=== PATIENT | female | born 1940 | race Caucasian/White ===

== ENCOUNTER → 2017-12-03 | Outpatient (CLI) | payer MEDICARE, BC ==
--- NOTE | 2017-12-03 13:18 | BD ---
EXAMINATION TYPE: MG DEXA axial skeleton. DATE OF EXAM: 12/03/2017 COMPARISON: 07/15/2015 CLINICAL HISTORY: Postmenopausal female. Osteoporosis screening. Height: 63.5 IN Weight: 192 LBS FRAX RISK QUESTIONS: Alcohol (3 or more units per day): NO Family History (Parent hip fracture): NO Glucocorticoids (More than 3mos): NO (Ex: prednisone, prednisolone, methylprednisolone, dexamethasone, and hydrocortisone). History of Fracture in Adulthood: NO Secondary Osteoporosis: 1. Type 1 Diabetes: NO 2. Hyperthyroidism: NO 3. Menopause before 45: NO 4. Malnutrition: NO 5. Chronic liver disease: NO Rheumatoid Arthritis: YES Current Tobacco Use: NO RISK FACTORS HISTORY OF: Active: YES Diet low in dairy products/other sources of calcium: YES Postmenopausal woman: AGE 54 Lost more than 2 inches in height since high school: YES 11/02 " MEDICATIONS: Additional Medications: VIT D, LOVASTATIN, IMIPRAMINE, MELATONIN, LISINOPRIL,ASPIRIN 81 MG, B12, FISH OIL, CLONAZEPAM, METOPROLOL EXAM MEASUREMENTS: Bone mineral densitometry was performed using the [employer] System. Bone mineral density as measured about the Lumbar spine is: ----- L1-L4(G/cm2): 1.346 T Score Values are as follows: ----- L2: 1.7 ----- L3: 1.6 ----- L4: 1.5 ----- L1-L4: 1.4 Bone mineral density has: Decreased -0.6% since study of: 07/15/2015 Bone mineral density about the R hip (g/cm2): 1.087 Bone mineral density about the L hip (g/cm2): 1.113 T Score values are as follows: -----R Neck: 0.4 -----L Neck: 0.5 -----R Total: 0.9 -----L Total: 1.1 Bone mineral density has: Increased 0.7% since study of: 07/15/2015 IMPRESSION: Normal (Values between +1 and -1 indicate normal bone mass). Consider repeating this study in 5 year s or sooner if there is some new clinical indication. NOTE: T-SCORE=SD OF THE YOUNG ADULT MEAN.
--- NOTE | 2017-12-06 10:11 | MM ---
Reason for exam: screening (asymptomatic). Last mammogram was performed 2 years and 5 months ago. History: Patient is postmenopausal. Physical Findings: A clinical breast exam by your physician is recommended on an annual basis and results should be correlated with mammographic findings. MG Screening Mammo w CAD Bilateral CC and MLO view(s) were taken. Prior study comparison: July 15, 2015, bilateral MG screening mammo w CAD. June 08, 2014, bilateral MG screening mammo w CAD. There are scattered fibroglandular densities. Finding: There are typically benign vascular, round calcifications in both breasts. There is no discrete abnormality. Left axillary pacemaker. ASSESSMENT: Benign, BI-RAD 2 RECOMMENDATION: Routine screening mammogram of both breasts in 1 year.
== END | disposition home or self-care (01) ==
LOC: RADMAMWWP 11:40
PROVIDERS: ATTEND Family Medicine
DX: Z12.31 Encounter for screening mammogram for malignant neoplasm of breast (principal); M89.9 Disorder of bone, unspecified; N95.1 Menopausal and female climacteric states
CPT/HCPCS: 77067; 77080

== ENCOUNTER → 2018-05-16 | Outpatient (CLI) | payer MEDICARE, BC ==
--- NOTE | 2018-05-16 10:28 | CT ---
EXAMINATION TYPE: CT abdomen pelvis w con DATE OF EXAM: 05/16/2018 HISTORY: Hematuria and generalized discomfort CT DLP: 1388.9mGycm Automated Exposure Control for Dose Reduction was Utilized. CONTRAST: CT scan of the abdomen and pelvis is performed with IV Contrast, patient injected with 100 mL of Isov ue 300. COMPARISON: None. FINDINGS: LUNG BASES: Probable lingular atelectasis and minimal subsegmental bibasilar atelectasis are noted. P artial visualization of ventricular leads and mild cardiomegaly are also seen. LIVER/GB: Benign-appearing dystrophic calcification is seen within the dome of the left hepatic lobe. Wedge-shaped area of hypoattenuation is seen near the fissure for the falciform ligament on series 3 image 17, most commonly related to focal fatty infiltration. Remaining visualized portions of the li cheo are grossly unremarkable. Gallbladder is contracted. PANCREAS: No ductal dilatation. Pancreatic parenchyma enhances homogeneously. SPLEEN: No significant abnormality is seen. No splenomegaly. ADRENALS: There is slight nodularity of the right adrenal gland ben measuring 1.2 cm. Left adrenal g land is somewhat diminutive but otherwise unremarkable. KIDNEYS: In the bilateral lower poles on delayed images there are 4 mm hypoattenuated renal lesions t hat are cortically-based sent to small to accurately characterize. No other renal lesion is seen. No evidence of hydronephrosis. Remainder of the kidneys enhance and excrete symmetrically.. BOWEL: Scattered colonic diverticula are present without pericolonic fat stranding. Ventral hernia re pair is noted. High density layering within the cecum and terminal ileum likely related to ingested s ubstances. No regular quadrant fat stranding changes are seen. Small bowel anastomotic site is noted within the mid low pelvis. No dilated large or small bowel. LYMPH NODES: No greater than 1cm abdominal or pelvic lymph nodes are appreciated. OSSEOUS STRUCTURES: Intact with multilevel degenerative disc disease.. OTHER: Extensive calcific atheromatous changes are seen of the abdominal aorta and its branches. No e vidence of aneurysmal dilatation.. IMPRESSION: 1. No significant acute finding is seen to account for patient's clinical symptoms. Postoperative baltazar nges of the small bowel are seen as well as high density within the nondilated terminal ileum, likely related to ingested substance and postoperative changes of prior ventral hernia repair. No recurrenc e of hernia or bowel obstruction. 2. Indeterminant 1.2 cm right adrenal gland lesion is currently of low suspicion and may represent no dular area of adrenal gland hyperplasia or true lesion. This could be further assessed with enhanced MRI or alternatively short-term follow-up could be performed in 6-12 months. 3. No evidence of hydronephrosis or suspicious renal mass. 4 mm cortical renal lesions are too small to accurately characterize but most commonly represent cysts. 4. Extensive atherosclerosis of the abdominal aorta and its branches without aneurysmal dilatation.
== END | disposition home or self-care (01) ==
LOC: RADCTMAIN 09:12
PROVIDERS: ATTEND Family Medicine
DX: I70.0 Atherosclerosis of aorta (principal); N28.1 Cyst of kidney, acquired; Z98.890 Other specified postprocedural states
CPT/HCPCS: 74177; Q9967

== ENCOUNTER → 2018-10-14 | Outpatient (CLI) | payer MEDICARE, BC ==
--- NOTE | 2018-10-14 14:28 | XR ---
AP pelvis HISTORY: Pelvic pain Single frontal view of the pelvis. Calcifications are present at the ischial tuberosities. There are vascular calcifications within the pelvis, iliac stent noted on the left. Multiple metallic coils are postoperative within the abdomen. No fracture or dislocation. Bone mineralization is reduced. Alignment and joint spaces are maintained . Degenerative disc changes are noted incidentally in the lower lumbar spine. Patient is rotated. IMPRESSION: There may be calcific tendinitis at the origin of the hamstring musculature. MRI of the p christa may be of benefit. Additional findings above.
--- NOTE | 2018-10-14 14:40 | XR ---
Lumbar spine HISTORY: Pain 3 views of the lumbar spine submitted and correlated prior lumbar spine 09/21/2012 Degenerative disc changes are again noted, there is a slight spinal curvature. Anterolisthesis grade 1 present L4-5. Loss of disc height present at the intervertebral levels with associated vacuum pheno edvin. Sclerosis present in the posterior elements. There is multilevel spondylosis. Bone mineralizat ion is decreased. Lumbar vertebral body height is maintained. Dense atherosclerotic calcifications pr esent in the aortoiliac distribution. IMPRESSION: Degenerative disc disease and facet arthropathy. There has been progression compared to p revious exam.
== END | disposition home or self-care (01) ==
LOC: RADXRMAIN 13:35
PROVIDERS: ATTEND Family Medicine
DX: M51.36 Other intervertebral disc degeneration, lumbar region (principal); M46.96 Unspecified inflammatory spondylopathy, lumbar region
CPT/HCPCS: 72100; 72170

== ENCOUNTER → 2018-11-21 | Outpatient (CLI) | payer MEDICARE, BC ==
--- NOTE | 2018-11-21 16:06 | CT ---
EXAMINATION TYPE: CT abdomen wo/w con DATE OF EXAM: 11/21/2018 HISTORY: Right adrenal lesion. CT DLP: 1960.5mGycm Automated Exposure Control for Dose Reduction was Utilized. CONTRAST: CT scan of the abdomen is performed with oral and without and with IV Contrast, patient injected with 100ml mL of Isovue 300. Adrenal gland protocol. COMPARISON: CT abdomen and pelvis May 16, 2018. FINDINGS: LUNG BASES: There is partial visualization of sternal wires and mediastinal clips. There is mild card iomegaly redemonstrated. Cardiac pacemaker wires are again partially imaged. LIVER/GB: Focal calcification left hepatic lobe is redemonstrated. PANCREAS: No significant abnormality is seen. SPLEEN: No significant abnormality is seen. ADRENALS: Slight nodular thickening centrally left adrenal gland measuring 1.7 x 0.8 cm measures just under [address] with enhancement to 79 Hounsfield units and washout to 14 Hounsfield unit s. Slight thickening centrally right adrenal gland measures 12 x 9 mm series 6 image 17 with Hounsfie ld units averaging [address], immediate postcontrast enhancement to 78 and washout to 23 Houn sfield units. Greater than 50% washout is consistent with bilateral lipid rich benign adenomas. KIDNEYS: No significant abnormality is seen. BOWEL: Oral contrast does not reach colonic level. No suspicious bowel dilatation is seen. LYMPH NODES: No greater than 1cm abdominal lymph nodes are appreciated. OSSEOUS STRUCTURES: There is multilevel disc space narrowing and vacuum disc phenomenon in the lumbar spine most prominent L3-L4 through L5-S1 levels. OTHER: Coils from prior ventral wall hernia repair surgery are redemonstrated. No suspicious recurren t hernia is seen. There is persistent severe calcified plaque of aorta extending into branch vessels. IMPRESSION: Small benign lipid rich adenomas are confirmed bilaterally.
== END | disposition home or self-care (01) ==
LOC: RADCTMAIN 14:07
PROVIDERS: ATTEND Urology
DX: D35.01 Benign neoplasm of right adrenal gland (principal)
CPT/HCPCS: 82565; 84520; 74170; 36415; Q9967

== ENCOUNTER → 2019-09-01 | Outpatient (CLI) | payer MEDICARE, BC ==
[2019-09-01 13:19] LABS: African American GFR (CKD) >90 (>60 ml/min/1.73 sqM); Blood Urea Nitrogen 15 mg/dL (7-17)
--- NOTE | 2019-09-01 17:16 | CT ---
EXAMINATION TYPE: CT brain wo/w con DATE OF EXAM: 09/01/2019 COMPARISON: None INDICATION: Memory Loss DLP: 2108.4 mGycm, Automated exposure control for dose reduction was used. CONTRAST: None CT of the brain is performed utilizing 3 mm thick sections through the posterior fossa and 3 mm thick sections through the remaining calvarium. Study is performed within 24 hours of arrival to the hosp ital. No abnormal hyperdensity is present to suggest an acute intracranial hemorrhage. No mass lesion is evident. No acute infarcts are evident. Mild periventricular white matter hypodensity is present, likely on th e basis of chronic white matter ischemic changes. Ventricles and sulci are mildly prominent for the patient age. Paranasal sinuses and mastoid air cells within the [id number] are clear. IMPRESSIONS: 1. Atrophy with chronic appearing white matter ischemic changes.
== END ==
LOC: RADCTMAIN 12:40
PROVIDERS: ATTEND Family Medicine
DX: I67.82 Cerebral ischemia (principal); G31.9 Degenerative disease of nervous system, unspecified
CPT/HCPCS: 82565; 84520; 70470; 36415; Q9967

== ENCOUNTER → 2019-11-28 | Outpatient (CLI) | payer MEDICARE, BC ==
--- NOTE | 2019-11-28 13:54 | CT ---
EXAMINATION TYPE: CT angio chest DATE OF EXAM: 11/28/2019 COMPARISON: None HISTORY: Shortness of breath. CT DLP: 457.9 mGycm CONTRAST: CT chest with contrast and 3D reconstruction with MIP imaging is performed with IV Contrast, patient injected with 80 mL of Isovue 370. Contrast-enhanced CT of the chest was performed through the course of the pulmonary arteries with ese g and mediastinal window settings submitted. 3D reconstruction with MIP imaging was also performed. PULMONARY ARTERIES: The pulmonary arteries and their major tributaries are patent. I do not see lauren dence for sizable filling defect to suggest pulmonary embolic process. LUNGS: The lungs are clear and free of infiltrate. No evidence for atelectasis. No pulmonary nodule or mass is detected. No pleural effusion. MEDIASTINUM: Thoracic aorta is of normal caliber,however, evaluation is limited given timing of the contrast bolus. If there is concern for thoracic aortic pathology consider ELOISA. Correlate clinicall y . The heart is not enlarged. No evidence for mediastinal mass. No mediastinal lymph nodes greater than 1cm. HILAR STRUCTURES: No evidence for mass. No hilar lymph nodes greater than 1 cm. UPPER ABDOMEN: No significant abnormality is seen. IMPRESSION: 1. No evidence for Pulmonary embolism at this time.
--- NOTE | 2019-11-28 14:50 | US ---
EXAMINATION TYPE: US venous doppler duplex LE BI DATE OF EXAM: 11/28/2019 2:36 PM COMPARISON: NONE CLINICAL HISTORY: R79.1 ABN COAGULATION PROFILE. Elevated D-Dimer SIDE PERFORMED: Bilateral TECHNIQUE: The lower extremity deep venous system is examined utilizing real time linear array sonog mario with graded compression, doppler sonography and color-flow sonography. VESSELS IMAGED: External Iliac Vein (EIV) Common Femoral Vein Deep Femoral Vein Greater Saphenous Vein * Femoral Vein Popliteal Vein Small Saphenous Vein * Proximal Calf Veins (* superficial vessels) Right Leg: Negative for DVT Left Leg: Negative for DVT Results called to Dr. Reyes at time of exam IMPRESSION: No evidence for DVT at this time.
== END | disposition home or self-care (01) ==
LOC: RADCTMAIN 13:12
PROVIDERS: ATTEND Family Medicine
DX: R79.1 Abnormal coagulation profile (principal)
CPT/HCPCS: 93970; 71275; Q9967

== ENCOUNTER 2020-05-22 14:59 | Emergency (ER) | payer MEDICARE, BC ==
[2020-05-22] MEDS ORDERED: LIDOCAINE VISCOUS 2% 15 ML CUP MUCOUS MEM ONE (15:23)
--- NOTE | 2020-05-22 15:51 | US ---
EXAMINATION TYPE: US venous doppler duplex LE LT DATE OF EXAM: 05/22/2020 3:46 PM COMPARISON: NONE CLINICAL HISTORY: LLE swelling r/o DVT . edema left leg for 2 days, patient on Plavix SIDE PERFORMED: Bilateral lower extremity ultrasound November 28, 2019 TECHNIQUE: The lower extremity deep venous system is examined utilizing real time linear array sonog mario with graded compression, doppler sonography and color-flow sonography. VESSELS IMAGED: External Iliac Vein (EIV) Common Femoral Vein Deep Femoral Vein Greater Saphenous Vein * Femoral Vein Popliteal Vein Small Saphenous Vein * Proximal Calf Veins (* superficial vessels) Left Leg: No evidence of DVT Grayscale, color doppler, spectral doppler imaging performed of the deep veins of the left lower extr emity. There is normal flow, compressibility, vascular waveforms. IMPRESSION: No ultrasound evidence for acute DVT in the left lower extremity.
--- NOTE | 2020-05-22 17:03 | ED ---
General Adult HPI - General Chief complaint: Extremity Problem,Nontraumatic Stated complaint: Blood clot Time Seen by Provider: 05/22/20 15:06 Source: patient, RN notes reviewed, old records reviewed Mode of arrival: wheelchair Limitations: no limitations - History of Present Illness Initial comments: 80-year-old female patient with a chief complaint left lower extremity swelling for the last 2 days. Denies any chest pain or shortness of breath. Denies any other complaints. Systemic: Pt denies fatigue, fever/chills, rash. Pt denies weakness, night sweats, weight loss. Neuro: Pt denies headache, visual disturbances, syncope or pre-syncope. HEENT: Pt denies ocular discharge or irritation, otalgia, rhinorrhea, pharyngitis or notable lymphadenopathy. Cardiopulmonary: Pt denies chest pain, SOB, heart palpitations, dyspnea on exertion. Abdominal/GI: Pt denies abdominal pain, n/v/d. : Pt denies dysuria, burning w/ urination, frequency/urgency. Denies new onset urinary or bowel incontinence. MSK: Pt denies myalgia, loss of strength or function in extremities. Neuro: Pt denies new onset weakness, paresthesias. - Related Data Home Medications Medication Instructions Recorded Confirmed Aspirin 81 mg PO BID 09/23/15 05/22/20 Ipratropium-Albuterol Nebulize 1 applic INHALATION RT-QID PRN 09/23/15 05/22/20 [Duoneb 0.5 mg-3 mg/3 ml Soln] Lovastatin [Mevacor] 20 mg PO HS 05/22/20 05/22/20 Metoprolol Tartrate [Lopressor] 75 mg PO BID 05/22/20 05/22/20 amLODIPine [Norvasc] 10 mg PO DAILY 05/22/20 05/22/20 clonazePAM [KlonoPIN] 0.5 mg PO HS 05/22/20 05/22/20 lisinopriL [Lisinopril] 40 mg PO DAILY 05/22/20 05/22/20 Previous Rx's Medication Instructions Recorded Clopidogrel [Plavix] 75 mg PO DAILY #90 tab 06/18/16 Azithromycin [Zithromax Z-pack] 0 mg PO DIRECTED #6 tab 05/22/20 predniSONE 50 mg PO DAILY 4 Days #4 tab 05/22/20 Allergies Allergy/AdvReac Type Severity Reaction Status Date / Time No Known Allergies Allergy Verified 05/22/20 16:52 Review of Systems ROS Statement: Those systems with pertinent positive or pertinent negative responses have been documented in the HPI. ROS Other: All systems not noted in ROS Statement are negative. Past Medical History Past Medical History: Coronary Artery Disease (CAD), COPD, Hyperlipidemia, Hypertension, Osteoarthritis (OA), Skin Disorder Additional Past Medical History / Comment(s): BLADDER WEAKNESS, ARTHRITIS-LOWER BACK, HANDS & KNEES,RASH NOW LT SIDE NECK- COMES & GOES. History of Any Multi-Drug Resistant Organisms: None Reported Past Surgical History: Appendectomy, Bowel Resection, Coronary Bypass/CABG, Heart Catheterization, Hysterectomy, Pacemaker Additional Past Surgical History / Comment(s): NICKOLAS CAROTID ENDARTERECTOMY, EXC. LEFT CATARACT WITH IMPLANT, CABG X4-05/2014, aortogram Past Anesthesia/Blood Transfusion Reactions: No Reported Reaction Type of Cardiac Device: Permanent Pacemaker Device Placement Date:: 09/30/15 [employer] Past Psychological History: No Psychological Hx Reported Smoking Status: Never smoker Past Alcohol Use History: Occasional Past Drug Use History: None Reported - Past Family History Father Family Medical History: Hypertension, Myocardial Infarction (ME) Additional Family Medical History / Comment(s): @ AGE 101 Mother Family Medical History: No Reported History Additional Family Medical History / Comment(s): FROM STROKE General Exam Limitations: no limitations Course Vital Signs 05/22/20 05/22/20 05/22/20 15:01 17:30 18:20 Temperature 98.3 F Pulse Rate 53 L 59 L 56 L Respiratory 16 20 18 Rate Blood Pressure 173/73 187/80 185/85 O2 Sat by Pulse 91 L 90 L 98 Oximetry Medical Decision Making - Medical Decision Making 80-year-old female patient with a chief complaint left lower extremity swelling for the last 2 days. Denies any chest pain or shortness of breath. Denies any other complaints. Patient vital signs are stable, afebrile. Exam did display some swelling to the left lower extremity nontender no erythema or cellulitic changes. Laboratory investigations displayed elevated d-dimer. Negative troponin. Venous Doppler negative for DVT. CTA negative for PE there is some pneumonia right middle lobe left upper lobe. Patient to test for Covid and treated for pneumonia with Rocephin and azithromycin. Patient states that she is not coughing anymore than normal. Patient will be prescribed breathing treatments. Patient will follow-up with her primary care provider tomorrow and return to ER if condition worsens. Patient had some bradycardia and will be advised here jail manager. Case discussed in depth with Dr. Mcclure. - Lab Data Result diagrams: 05/22/20 17:36 05/22/20 17:36 Lab Results 05/22/20 05/22/20 05/22/20 Range/Units 17:36 17:36 17:36 WBC 10.6 (3.8-10.6) k/uL RBC 4.83 (3.80-5.40) m/uL Hgb 16.3 H (11.4-16.0) gm/dL Hct 50.3 H (34.0-46.0) % MCV 104.1 H (80.0-100.0) fL MCH 33.8 (25.0-35.0) pg MCHC 32.4 (31.0-37.0) g/dL RDW 12.9 (11.5-15.5) % Plt Count 261 (150-450) k/uL Neutrophils % 88 % Lymphocytes % 9 % Monocytes % 2 % Eosinophils % 2 % Basophils % 0 % Neutrophils # 9.2 H (1.3-7.7) k/uL Lymphocytes # 0.9 L (1.0-4.8) k/uL Monocytes # 0.2 (0-1.0) k/uL Eosinophils # 0.2 (0-0.7) k/uL Basophils # 0.0 (0-0.2) k/uL Macrocytosis Slight D-Dimer 1.52 H (<0.60) mg/L FEU Sodium 136 L (137-145) mmol/L Potassium 5.0 (3.5-5.1) mmol/L Chloride 97 L (98-107) mmol/L Carbon Dioxide 24 (22-30) mmol/L Anion Gap 15 mmol/L BUN 19 H (7-17) mg/dL Creatinine 0.69 (0.52-1.04) mg/dL Est GFR (CKD-EPI)AfAm >90 (>60 ml/min/1.73 sqM) Est GFR (CKD-EPI)NonAf 83 (>60 ml/min/1.73 sqM) Glucose 144 H (74-99) mg/dL Calcium 10.3 H (8.4-10.2) mg/dL Total Bilirubin 0.9 (0.2-1.3) mg/dL AST 43 H (14-36) U/L ALT 26 (4-34) U/L Alkaline Phosphatase 73 (38-126) U/L Troponin I (0.000-0.034) ng/mL Total Protein 8.2 (6.3-8.2) g/dL Albumin 5.1 H (3.5-5.0) g/dL 05/22/20 Range/Units 17:36 WBC (3.8-10.6) k/uL RBC (3.80-5.40) m/uL Hgb (11.4-16.0) gm/dL Hct (34.0-46.0) % MCV (80.0-100.0) fL MCH (25.0-35.0) pg MCHC (31.0-37.0) g/dL RDW (11.5-15.5) % Plt Count (150-450) k/uL Neutrophils % % Lymphocytes % % Monocytes % % Eosinophils % % Basophils % % Neutrophils # (1.3-7.7) k/uL Lymphocytes # (1.0-4.8) k/uL Monocytes # (0-1.0) k/uL Eosinophils # (0-0.7) k/uL Basophils # (0-0.2) k/uL Macrocytosis D-Dimer (<0.60) mg/L FEU Sodium (137-145) mmol/L Potassium (3.5-5.1) mmol/L Chloride (98-107) mmol/L Carbon Dioxide (22-30) mmol/L Anion Gap mmol/L BUN (7-17) mg/dL Creatinine (0.52-1.04) mg/dL Est GFR (CKD-EPI)AfAm (>60 ml/min/1.73 sqM) Est GFR (CKD-EPI)NonAf (>60 ml/min/1.73 sqM) Glucose (74-99) mg/dL Calcium (8.4-10.2) mg/dL Total Bilirubin (0.2-1.3) mg/dL AST (14-36) U/L ALT (4-34) U/L Alkaline Phosphatase (38-126) U/L Troponin I <0.012 (0.000-0.034) ng/mL Total Protein (6.3-8.2) g/dL Albumin (3.5-5.0) g/dL - EKG Data -: EKG Interpreted by Me (and Dr. Mcclure ) EKG Comments: 1) ventricular rate 58, painful to 24, QRS 108, QT/QTc 478/469. Sinus bradycardia with first-degree AV block, possible left atrial enlargement dramatically right bundle branch block. Nonspecific changes. No concern for acute ischemia. 2) ventricular rate 58 when necessary for 162 QRS 108, QT/QTC 500/490. Sinus bradycardia with occasional PVC with right bundle-branch block. Nonspecific changes. No concern for acute ischemia at this time. Disposition Clinical Impression: Bradycardia, Pneumonia, COPD (chronic obstructive pulmonary disease) Disposition: HOME SELF-CARE Condition: Stable Additional Instructions: Use albuterol as needed may use 2 puffs every 4-6 hours. Follow-up with primary care provider and jail manager tomorrow. Take antibiotics as directed. Return to ER if condition worsens in any way. Prescriptions: predniSONE 50 mg PO DAILY #5 tab Azithromycin [Zithromax Z-pack] 0 mg PO DIRECTED #6 tab Is patient prescribed a controlled substance at d/c from ED?: No Referrals: Beatriz Reyes MD [Primary Care Provider] - 1-2 days
[2020-05-22 17:46] LABS: Basophils % (A) 0 %; Eosinophils # (A) 0.2 k/uL (0-0.7); Eosinophils % (A) 2 %; HCT 50.3 % (34.0-46.0); HGB 16.3 gm/dL (11.4-16.0); Lymphocytes # (A) 0.9 k/uL (1.0-4.8); Lymphocytes % (A) 9 %; MCH 33.8 pg (25.0-35.0); MCHC 32.4 g/dL (31.0-37.0); MCV 104.1 fL (80.0-100.0); Macrocytosis Slight; Mean Platelet Volume 7.6; Monocytes # (A) 0.2 k/uL (0-1.0); Monocytes % (A) 2 %; Neutrophils # (A) 9.2 k/uL (1.3-7.7); Neutrophils % (A) 88 %; Platelet Count 261 k/uL (150-450); RBC 4.83 m/uL (3.80-5.40); RDW 12.9 % (11.5-15.5); WBC 10.6 k/uL (3.8-10.6)
[2020-05-22 17:58] LABS: ALT 26 U/L (4-34); AST 43 U/L (14-36); African American GFR (CKD) >90 (>60 ml/min/1.73 sqM); Albumin 5.1 g/dL (3.5-5.0); Alkaline Phosphatase 73 U/L (38-126); Anion Gap 15 mmol/L; Blood Urea Nitrogen 19 mg/dL (7-17); Calcium 10.3 mg/dL (8.4-10.2); Carbon Dioxide 24 mmol/L (22-30); Chloride 97 mmol/L (98-107); Glucose 144 mg/dL (74-99); Non-African American GFR(CKD) 83 (>60 ml/min/1.73 sqM); Sodium 136 mmol/L (137-145); Total Bilirubin 0.9 mg/dL (0.2-1.3); Total Protein 8.2 g/dL (6.3-8.2)
[2020-05-22] MEDS ORDERED: SODIUM CHLORIDE 0.9% 1,000 ML IV ONE (18:15)
--- NOTE | 2020-05-22 19:01 | CT ---
EXAMINATION TYPE: CT chest angio for PE DATE OF EXAM: 05/22/2020 COMPARISON: 11/28/2019 HISTORY: SOB, elevated d-dimer CT DLP: 484.8 mGycm Automated exposure control for dose reduction was used. CONTRAST: Performed with IV Contrast, patient injected with 80cc mL of Isovue 370. Multiple axial sections were obtained from the thoracic inlet to the diaphragm with IV contrast. Ther e are 3-D post processed images. FINDINGS: The lungs are clear of consolidation. There is no pleural effusion. There is no mediastinal adenopath y there are no hilar masses. Thoracic aorta is atheromatous. There is no thoracic aortic aneurysm or dissection. There is normal contrast opacification of the pulmonary arteries. There are no filling de fects. There is some coarse reticular density in the right middle lobe and lingula left upper lobe. T here is no evidence of thoracic compression fracture. There is spondylotic changes in the thoracic sp ine. IMPRESSION: Atherosclerotic vascular disease. No evidence of pulmonary embolism. There is some mild right middle lobe and lingula left upper lobe interstitial infiltrate and atelectasis that appears new compared to old exam.
[2020-05-22] MEDS ORDERED: cefTRIAXone IN SWFI 1,000 MG/10 ML SYRINGE IVP STA (19:42)
[2020-05-22] MEDS ORDERED: AZITHROMYCIN 500 MG TAB PO STA (19:42)
[2020-05-22] MEDS ORDERED: ALBUTEROL NEBULIZED 2.5 MG/3 ML INHALATION STA (19:48)
[2020-05-22] MEDS ORDERED: predniSONE 50 MG TAB PO STA (19:52)
[2020-05-22 20:09] VITALS: BP 190/88; PULSE 54; RESP 20; TEMP 98
== END 2020-05-22 20:32 | disposition home or self-care (01) ==
LOC: EC 14:59
DX: J44.0 Chronic obstructive pulmonary disease with (acute) lower respiratory infection (principal); J18.9 Pneumonia, unspecified organism; R00.1 Bradycardia, unspecified; Z20.828 Contact with and (suspected) exposure to other viral communicable diseases; I25.10 Atherosclerotic heart disease of native coronary artery without angina pectoris; J44.9 Chronic obstructive pulmonary disease, unspecified; I10 Essential (primary) hypertension; E78.5 Hyperlipidemia, unspecified; Z79.51 Long term (current) use of inhaled steroids; Z79.890 Hormone replacement therapy; Z79.82 Long term (current) use of aspirin; Z95.0 Presence of cardiac pacemaker; Z95.1 Presence of aortocoronary bypass graft
CPT/HCPCS: 99284; 96374; 96361 ×2; 36415; 93005; 85379; 80053; 84484; 85025; 93971; 71275; U0003; J0696; J7512; Q9967

== ENCOUNTER 2021-01-07 10:17 | Emergency (ER) | payer MEDICARE, BC ==
[2021-01-07 10:56] LABS: Basophils # (A) 0.1 k/uL (0-0.2); Basophils % (A) 1 %; Eosinophils # (A) 0.1 k/uL (0-0.7); Eosinophils % (A) 1 %; HCT 48.6 % (34.0-46.0); Lymphocytes # (A) 1.2 k/uL (1.0-4.8); Lymphocytes % (A) 13 %; MCH 33.2 pg (25.0-35.0); MCHC 32.9 g/dL (31.0-37.0); MCV 100.9 fL (80.0-100.0); Mean Platelet Volume 6.9; Monocytes # (A) 0.6 k/uL (0-1.0); Monocytes % (A) 6 %; Neutrophils # (A) 7.3 k/uL (1.3-7.7); Neutrophils % (A) 79 %; Platelet Count 339 k/uL (150-450); RBC 4.82 m/uL (3.80-5.40); RDW 12.5 % (11.5-15.5); WBC 9.2 k/uL (3.8-10.6)
[2021-01-07 11:01] LABS: Appearance,Urine Cloudy (Clear); Bilirubin,Urine 1+ (Negative); Blood,Urine Negative (Negative); Color,Urine Dark Yellow; Glucose,Urine (UA) Negative (Negative); Hyaline Casts,Urine 1 /lpf (0-2); Ketones,Urine Negative (Negative); Leukocyte Esterase,Urine Large (Negative); Mucus,Urine Occasional /hpf; Nitrite,Urine Negative (Negative); PH, Urine 5.5 (5.0-8.0); Protein,Urine 1+ (Negative); Specific Gravity,Urine 1.026 (1.001-1.035); Squamous Epithelial Cell,Urine 11 /hpf (0-4); WBC,Urine 8 /hpf (0-5)
[2021-01-07 11:05] LABS: Albumin 4.7 g/dL (3.5-5.0); Calcium 9.8 mg/dL (8.4-10.2); Magnesium 1.5 mg/dL (1.6-2.3); Potassium 4.6 mmol/L (3.5-5.1); Total Bilirubin 0.9 mg/dL (0.2-1.3); Total Protein 7.6 g/dL (6.3-8.2)
[2021-01-07 11:07] LABS: Partial Thromboplastin Time 22.4 sec (22.0-30.0); Prothrombin Time 10.8 sec (9.0-12.0)
--- NOTE | 2021-01-07 11:15 | ED ---
General Adult HPI - General Chief complaint: Neuro Symptoms/Deficit Stated complaint: possible dementia Time Seen by Provider: 01/07/21 10:24 Source: patient, family Mode of arrival: ambulatory - History of Present Illness Initial comments: Patient is a 80-year-old female with history of COPD, hypertension, heart disease, presents emergency Department with her daughter over concerns of possible dementia. Patient currently lives on her own, daughter lives 1.5 hours away, she is the patient's closest relative. Daughter states that she has concerns over the past few months of patient's intermittent memory loss, forgetting appointments. Patient currently does not believe she is having memory issues. She currently lives on her own, drives to her appointments, takes her medications as prescribed. Patient states she did have a recent fall about 3 days ago at a store, she tripped on something on the floor, she did not hit her head. There is no loss of consciousness. Patient is on plavix as she has a pacemaker. She has no complaints of pain from this fall. She denies any pains at this time, no shortness of breath, she's been eating and drinking as normal. No headaches, no blurry vision, no numbness and tingling to her extremities. She has no complaints at this time. Upon arrival to the ER, her vitals are stable. - Related Data Home Medications Medication Instructions Recorded Confirmed Aspirin 81 mg PO BID 09/23/15 01/07/21 Ipratropium-Albuterol Nebulize 3 ml INHALATION RT-QID PRN 09/23/15 01/07/21 [Duoneb 0.5 mg-3 mg/3 ml Soln] Lovastatin [Mevacor] 20 mg PO HS 05/22/20 01/07/21 Metoprolol Tartrate [Lopressor] 50 mg PO BID 05/22/20 01/07/21 amLODIPine [Norvasc] 5 mg PO BID 05/22/20 01/07/21 clonazePAM [KlonoPIN] 0.5 mg PO HS 05/22/20 01/07/21 lisinopriL 40 mg PO DAILY 05/22/20 01/07/21 Cyanocobalamin [Vitamin B-12] 500 mcg PO DAILY 01/07/21 01/07/21 Fish Oil/Dha/Epa [Fish Oil 1,200 1 cap PO BID 01/07/21 01/07/21 mg Fish Oil] Imipramine HCl [Tofranil] 50 mg PO BID 01/07/21 01/07/21 Melatonin 30 mg PO HS 01/07/21 01/07/21 Allergies Allergy/AdvReac Type Severity Reaction Status Date / Time No Known Allergies Allergy Verified 01/07/21 11:30 Review of Systems ROS Statement: Those systems with pertinent positive or pertinent negative responses have been documented in the HPI. ROS Other: All systems not noted in ROS Statement are negative. Past Medical History Past Medical History: Coronary Artery Disease (CAD), COPD, Hyperlipidemia, Hypertension, Osteoarthritis (OA), Skin Disorder Additional Past Medical History / Comment(s): BLADDER WEAKNESS, ARTHRITIS-LOWER BACK, HANDS & KNEES History of Any Multi-Drug Resistant Organisms: None Reported Past Surgical History: Appendectomy, Bowel Resection, Coronary Bypass/CABG, Heart Catheterization, Hysterectomy, Pacemaker Additional Past Surgical History / Comment(s): NICKOLAS CAROTID ENDARTERECTOMY, EXC. LEFT CATARACT WITH IMPLANT, CABG X4-05/2014, aortogram Past Anesthesia/Blood Transfusion Reactions: No Reported Reaction Type of Cardiac Device: Permanent Pacemaker Device Placement Date:: 09/30/15 [employer] Past Psychological History: No Psychological Hx Reported Smoking Status: Never smoker Past Alcohol Use History: Occasional Past Drug Use History: None Reported - Past Family History Father Family Medical History: Hypertension, Myocardial Infarction ([place]) Additional Family Medical History / Comment(s): @ AGE 101 Mother Family Medical History: No Reported History Additional Family Medical History / Comment(s): FROM STROKE General Exam - General Exam Comments Initial Comments: GENERAL: Patient is well-developed and well-nourished. Patient is nontoxic and in no acute distress. HEAD: Atraumatic, normocephalic. EYES: Pupils equal round and reactive to light, extraocular movements intact, sclera anicteric, conjunctiva are normal. Eyelids were unremarkable. ENT: TMs normal, nares patent, oropharynx clear without exudates. Moist mucous membranes. NECK: Normal range of motion, supple without lymphadenopathy or JVD. LUNGS: Unlabored respirations. Breath sounds clear to auscultation bilaterally and equal. No wheezes rales or rhonchi. HEART: Regular rate and rhythm without murmurs, rubs or gallops. ABDOMEN: Soft, nontender, normoactive bowel sounds. No guarding, no rebound. No masses appreciated. : Deferred MUSCULOSKELETAL: Normal extremities with adequate strength and normal range of motion, no pitting or edema. No clubbing or cyanosis. NEUROLOGICAL: Patient is alert and oriented x 3. Motor and sensory are also intact. Cranial nerves II through XII grossly intact. Symmetrical smile. Normal speech, normal gait. PSYCH: Normal mood, normal affect. SKIN: Warm, Dry, normal turgor, no rashes or lesions noted. Course Vital Signs 01/07/21 01/07/21 01/07/21 10:20 10:54 12:03 Temperature 98.3 F Pulse Rate 77 51 L 51 L Respiratory 20 18 18 Rate Blood Pressure 185/81 179/73 209/87 O2 Sat by Pulse 92 L 94 L 94 L Oximetry EKG Findings - EKG Comments: EKG Findings:: Atrial paced rhythm with prolonged AV conduction, nonspecific ST abnormalities, no signs of acute ischemia, there is a lot of artifact on this EKG. Ventricular rate 53, MN interval 212, QT 482. Medical Decision Making - Medical Decision Making Patient is a 80-year-old female here with her daughter with concerns of possible dementia. Her vital signs are stable here, patient has no specific complaints. Her exam is unremarkable, no acute neuro deficits. EKG shows no acute process. Lab work shows normal white count, normal hemoglobin, kidney function is stable, TSH is normal. Urine shows no evidence of infection at this time. Chest x-ray shows chronic changes without acute process as well as CT of the brain. Patient's vital signs remained stable here, some hypertension, over patient is anxious here in the ER and just wants to go home. She did take her blood pressure medications this morning. Discussed these findings with the patient and patient's daughter. Patient is stable for discharge at this time. If daughter continues to have concerns the patient living on their own and I recommend following up with the family doctor in regards to placement issues. Patient's daughter is in agreement with this plan of care. Return parameters were discussed with the patient and her daughter and they both verbalized understanding. Case discussed with Dr. Pacheco. - Lab Data Result diagrams: 01/07/21 10:43 01/07/21 10:43 Lab Results 01/07/21 01/07/21 01/07/21 Range/Units 10:43 10:43 10:43 WBC 9.2 (3.8-10.6) k/uL RBC 4.82 (3.80-5.40) m/uL Hgb 16.0 (11.4-16.0) gm/dL Hct 48.6 H (34.0-46.0) % MCV 100.9 H (80.0-100.0) fL MCH 33.2 (25.0-35.0) pg MCHC 32.9 (31.0-37.0) g/dL RDW 12.5 (11.5-15.5) % Plt Count 339 (150-450) k/uL MPV 6.9 Neutrophils % 79 % Lymphocytes % 13 % Monocytes % 6 % Eosinophils % 1 % Basophils % 1 % Neutrophils # 7.3 (1.3-7.7) k/uL Lymphocytes # 1.2 (1.0-4.8) k/uL Monocytes # 0.6 (0-1.0) k/uL Eosinophils # 0.1 (0-0.7) k/uL Basophils # 0.1 (0-0.2) k/uL PT 10.8 (9.0-12.0) sec INR 1.0 (<1.2) APTT 22.4 (22.0-30.0) sec Sodium 138 (137-145) mmol/L Potassium 4.6 (3.5-5.1) mmol/L Chloride 98 (98-107) mmol/L Carbon Dioxide 28 (22-30) mmol/L Anion Gap 12 mmol/L BUN 15 (7-17) mg/dL Creatinine 0.87 (0.52-1.04) mg/dL Est GFR (CKD-EPI)AfAm 73 (>60 ml/min/1.73 sqM) Est GFR (CKD-EPI)NonAf 64 (>60 ml/min/1.73 sqM) Glucose 135 H (74-99) mg/dL Calcium 9.8 (8.4-10.2) mg/dL Magnesium 1.5 L (1.6-2.3) mg/dL Total Bilirubin 0.9 (0.2-1.3) mg/dL AST 35 (14-36) U/L ALT 30 (4-34) U/L Alkaline Phosphatase 65 (38-126) U/L Total Protein 7.6 (6.3-8.2) g/dL Albumin 4.7 (3.5-5.0) g/dL TSH 4.370 (0.465-4.680) mIU/L Urine Color Urine Appearance (Clear) Urine pH (5.0-8.0) Ur Specific [place] (1.001-1.035) Urine Protein (Negative) Urine Glucose (UA) (Negative) Urine Ketones (Negative) Urine Blood (Negative) Urine Nitrite (Negative) Urine Bilirubin (Negative) Urine Urobilinogen (<2.0) mg/dL Ur Leukocyte Esterase (Negative) Urine WBC (0-5) /hpf Ur Squamous Epith Cells (0-4) /hpf Hyaline Casts (0-2) /lpf Urine Mucus (None) /hpf 01/07/21 Range/Units 10:43 WBC (3.8-10.6) k/uL RBC (3.80-5.40) m/uL Hgb (11.4-16.0) gm/dL Hct (34.0-46.0) % MCV (80.0-100.0) fL MCH (25.0-35.0) pg MCHC (31.0-37.0) g/dL RDW (11.5-15.5) % Plt Count (150-450) k/uL MPV Neutrophils % % Lymphocytes % % Monocytes % % Eosinophils % % Basophils % % Neutrophils # (1.3-7.7) k/uL Lymphocytes # (1.0-4.8) k/uL Monocytes # (0-1.0) k/uL Eosinophils # (0-0.7) k/uL Basophils # (0-0.2) k/uL PT (9.0-12.0) sec INR (<1.2) APTT (22.0-30.0) sec Sodium (137-145) mmol/L Potassium (3.5-5.1) mmol/L Chloride (98-107) mmol/L Carbon Dioxide (22-30) mmol/L Anion Gap mmol/L BUN (7-17) mg/dL Creatinine (0.52-1.04) mg/dL Est GFR (CKD-EPI)AfAm (>60 ml/min/1.73 sqM) Est GFR (CKD-EPI)NonAf (>60 ml/min/1.73 sqM) Glucose (74-99) mg/dL Calcium (8.4-10.2) mg/dL Magnesium (1.6-2.3) mg/dL Total Bilirubin (0.2-1.3) mg/dL AST (14-36) U/L ALT (4-34) U/L Alkaline Phosphatase (38-126) U/L Total Protein (6.3-8.2) g/dL Albumin (3.5-5.0) g/dL TSH (0.465-4.680) mIU/L Urine Color Dark Yellow Urine Appearance Cloudy H (Clear) Urine pH 5.5 (5.0-8.0) Ur Specific [place] 1.026 (1.001-1.035) Urine Protein 1+ H (Negative) Urine Glucose (UA) Negative (Negative) Urine Ketones Negative (Negative) Urine Blood Negative (Negative) Urine Nitrite Negative (Negative) Urine Bilirubin 1+ H (Negative) Urine Urobilinogen 3.0 (<2.0) mg/dL Ur Leukocyte Esterase Large H (Negative) Urine WBC 8 H (0-5) /hpf Ur Squamous Epith Cells 11 H (0-4) /hpf Hyaline Casts 1 (0-2) /lpf Urine Mucus Occasional H (None) /hpf Disposition Clinical Impression: Memory change, Hypertension Disposition: HOME SELF-CARE Condition: Stable Instructions (If sedation given, give patient instructions): Hypertension (ED) Additional Instructions: Please return to the Emergency Department if symptoms worsen or any other concerns. Please monitor blood pressure. Please follow-up with your regular family doctor. Is patient prescribed a controlled substance at d/c from ED?: No Referrals: Beatriz Reyes MD [Primary Care Provider] - 1-2 days
--- NOTE | 2021-01-07 11:42 | XR ---
EXAMINATION TYPE: XR chest 2V DATE OF EXAM: 01/07/2021 COMPARISON: CTA chest November 28, 2019. Prior chest x-ray October 01, 2015 HISTORY: Shortness of breath. TECHNIQUE: Frontal and lateral views of the chest are obtained. FINDINGS: There is chronic parenchymal changes bilaterally without suspicious focal air space opacit y, pleural effusion, or pneumothorax seen. The cardiac silhouette size is upper limits of normal wit h atherosclerotic aorta. Overlying sternal wires and mediastinal clips. The osseous structures are d emineralized. IMPRESSION: Chronic changes without acute pulmonary process.
--- NOTE | 2021-01-07 12:01 | CT ---
EXAMINATION TYPE: CT brain wo con DATE OF EXAM: 01/07/2021 COMPARISON: CT brain 09/01/2019 HISTORY: Fall, memory issues CT DLP: 1114.4 mGycm Automated exposure control for dose reduction was used. Helical imaging through the brain. FINDINGS: There is no hemorrhage or hydrocephalus. Cerebral vascular calcifications are present. Periventricula r white matter shows patchy low attenuation. Cortical atrophy is likely age-related. IMPRESSION: STABLE EXAM. AGE-RELATED CHANGES OF ATROPHY AND CHRONIC SMALL VESSEL ISCHEMIA
[2021-01-07 12:37] VITALS: BP 215/87; PULSE 53; RESP 20
[2021-01-07] MEDS ORDERED: cloNIDine HCL 0.2 MG TAB PO STA (12:37)
[2021-01-07 12:56] VITALS: TEMP 98.2
== END 2021-01-07 12:56 | disposition home or self-care (01) ==
LOC: EC 10:17
DX: R41.3 Other amnesia (principal); I10 Essential (primary) hypertension; E78.5 Hyperlipidemia, unspecified; I25.10 Atherosclerotic heart disease of native coronary artery without angina pectoris; J44.9 Chronic obstructive pulmonary disease, unspecified; Z79.02 Long term (current) use of antithrombotics/antiplatelets; Z79.82 Long term (current) use of aspirin
CPT/HCPCS: 36415; 70450; 71046; 80053; 81001; 83735; 84443; 85025; 85610; 85730; 93005; 99284

== ENCOUNTER 2021-02-14 22:59 | Emergency (ER) | payer MEDICARE, BC ==
[2021-02-14 23:12] VITALS: RESP 16; TEMP 98.3
--- NOTE | 2021-02-14 23:13 | ED ---
Fall HPI - General Stated Complaint: Fall Time Seen by Provider: 02/14/21 23:11 - History of Present Illness Initial Comments: This patient is a 80-year-old woman who presents to be evaluated for a fall. The patient states that she had been standing and then was unsure if she lost her balance but she fell striking her head. She currently denies injury other than a laceration. Patient denies head or neck pain. No chest, abdomen, back or extremity pain. Patient did not note symptoms prior to the fall. No chest pain, dyspnea, palpitations. She does not recall when her last tetanus shot was. MD Complaint: fall -: minutes(s) Fall From: standing When Fall Occurred: 1 hour STAFF PHYSICAL THERAPIST Fall Witnessed: no Place Fall Occurred: home Loss of Consciousness: unsure Prolonged Down Time?: no Symptoms Prior to Fall: none Location: head Severity scale (1-10): 0 - Related Data Home Medications Medication Instructions Recorded Confirmed Aspirin 81 mg PO BID 09/23/15 02/14/21 Ipratropium-Albuterol Nebulize 3 ml INHALATION RT-QID PRN 09/23/15 02/14/21 [Duoneb 0.5 mg-3 mg/3 ml Soln] Lovastatin [Mevacor] 20 mg PO HS 05/22/20 02/14/21 Metoprolol Tartrate [Lopressor] 50 mg PO BID 05/22/20 02/14/21 amLODIPine [Norvasc] 5 mg PO BID 05/22/20 02/14/21 clonazePAM [KlonoPIN] 0.5 mg PO HS 05/22/20 02/14/21 lisinopriL 40 mg PO DAILY 05/22/20 02/14/21 Cyanocobalamin [Vitamin B-12] 500 mcg PO DAILY 01/07/21 02/14/21 Fish Oil/Dha/Epa [Fish Oil 1,200 1 cap PO BID 01/07/21 02/14/21 mg Fish Oil] Melatonin 30 mg PO HS 01/07/21 02/14/21 Furosemide [Lasix] 40 mg PO BID@0700,1400 02/14/21 02/14/21 Magnesium Oxide 400 mg PO DAILY 02/14/21 02/14/21 Memantine [Namenda] 10 mg PO BID 02/14/21 02/14/21 Potassium Chloride ER [K-Dur 20] 20 meq PO DAILY 02/14/21 02/14/21 Allergies Allergy/AdvReac Type Severity Reaction Status Date / Time No Known Allergies Allergy Verified 01/07/21 11:30 Review of Systems ROS Statement: Those systems with pertinent positive or pertinent negative responses have been documented in the HPI. ROS Other: All systems not noted in ROS Statement are negative. Constitutional: Denies: fever, chills ENT: Denies: throat pain Respiratory: Denies: cough, dyspnea Cardiovascular: Denies: chest pain, palpitations, edema Gastrointestinal: Denies: abdominal pain, nausea, vomiting Genitourinary: Denies: dysuria, hematuria Musculoskeletal: Denies: back pain Skin: Denies: rash Neurological: Denies: headache, weakness, numbness, confusion Past Medical History Past Medical History: Coronary Artery Disease (CAD), COPD, Hyperlipidemia, Hype rtension, Osteoarthritis (OA), Skin Disorder Additional Past Medical History / Comment(s): BLADDER WEAKNESS, ARTHRITIS-LOWER BACK, HANDS & KNEES History of Any Multi-Drug Resistant Organisms: None Reported Past Surgical History: Appendectomy, Bowel Resection, Coronary Bypass/CABG, Heart Catheterization, Hysterectomy, Pacemaker Additional Past Surgical History / Comment(s): NICKOLAS CAROTID ENDARTERECTOMY, EXC. LEFT CATARACT WITH IMPLANT, CABG X4-05/2014, aortogram Past Anesthesia/Blood Transfusion Reactions: No Reported Reaction Type of Cardiac Device: Permanent Pacemaker Device Placement Date:: 09/30/15 [employer] Past Psychological History: No Psychological Hx Reported Smoking Status: Never smoker Past Alcohol Use History: Occasional Past Drug Use History: None Reported - Past Family History Father Family Medical History: Hypertension, Myocardial Infarction ([place]) Additional Family Medical History / Comment(s): @ AGE 101 Mother Family Medical History: No Reported History Additional Family Medical History / Comment(s): FROM STROKE General Exam General appearance: alert, in no apparent distress Head exam: Present: normocephalic Eye exam: Present: normal appearance, PERRL, EOMI. Absent: scleral icterus, conjunctival injection ENT exam: Present: normal oropharynx Neck exam: Present: normal inspection, full ROM Respiratory exam: Present: normal lung sounds bilaterally. Absent: respiratory distress, wheezes, rales, rhonchi, stridor Cardiovascular Exam: Present: regular rate, normal rhythm, normal heart sounds. Absent: systolic murmur, diastolic murmur, rubs, gallop GI/Abdominal exam: Present: soft. Absent: distended, tenderness, guarding, rebound, rigid, mass Extremities exam: Present: normal inspection, normal capillary refill. Absent: pedal edema, calf tenderness Back exam: Present: normal inspection. Absent: CVA tenderness (R), CVA tenderness (L), vertebral tenderness Neurological exam: Present: alert, oriented X3, CN II-XII intact. Absent: motor sensory deficit Skin exam: Present: warm, dry, normal color, other. Absent: intact (Right parietal scalp laceration, 7 cm. Right fifth digit laceration, 3 cm in length), rash Course Vital Signs 02/14/21 23:00 Temperature 98.3 F Pulse Rate 50 L Respiratory 16 Rate Blood Pressure 114/62 O2 Sat by Pulse 92 L Oximetry Procedures - Laceration Laceration #1 Consent Obtained: verbal consent Indication: laceration Site: scalp Size (cm): 7 Description: linear Depth: simple, single layer Anesthetic Used: lidocaine 1% Anesthesia Technique: local infiltration Type of Sutures: nylon Size of Sutures: 5-0 Number of Sutures: 10 Technique: running Patient Tolerated Procedure: well Laceration #2 Consent Obtained: verbal consent Indication: laceration Site: hand Description: linear Depth: simple, single layer Anesthetic Used: lidocaine 1% Anesthesia Technique: local infiltration Type of Sutures: nylon Size of Sutures: 5-0 Number of Sutures: 4 Technique: simple, interrupted Medical Decision Making - Lab Data Result diagrams: 02/14/21 23:39 02/14/21 23:39 Lab Results 02/14/21 02/14/21 Range/Units 23:39 23:39 WBC 7.4 (3.8-10.6) k/uL RBC 4.36 (3.80-5.40) m/uL Hgb 13.9 (11.4-16.0) gm/dL Hct 43.5 (34.0-46.0) % MCV 99.8 (80.0-100.0) fL MCH 31.9 (25.0-35.0) pg MCHC 31.9 (31.0-37.0) g/dL RDW 12.7 (11.5-15.5) % Plt Count 248 (150-450) k/uL MPV 7.3 Neutrophils % 60 % Lymphocytes % 27 % Monocytes % 5 % Eosinophils % 5 % Basophils % 1 % Neutrophils # 4.4 (1.3-7.7) k/uL Lymphocytes # 2.0 (1.0-4.8) k/uL Monocytes # 0.4 (0-1.0) k/uL Eosinophils # 0.4 (0-0.7) k/uL Basophils # 0.1 (0-0.2) k/uL Sodium 133 L (137-145) mmol/L Potassium 4.6 (3.5-5.1) mmol/L Chloride 95 L (98-107) mmol/L Carbon Dioxide 25 (22-30) mmol/L Anion Gap 13 mmol/L BUN 14 (7-17) mg/dL Creatinine 0.88 (0.52-1.04) mg/dL Est GFR (CKD-EPI)AfAm 73 (>60 ml/min/1.73 sqM) Est GFR (CKD-EPI)NonAf 63 (>60 ml/min/1.73 sqM) Glucose 94 (74-99) mg/dL Calcium 9.3 (8.4-10.2) mg/dL Total Bilirubin 0.6 (0.2-1.3) mg/dL AST 38 H (14-36) U/L ALT 24 (4-34) U/L Alkaline Phosphatase 53 (38-126) U/L Total Protein 6.8 (6.3-8.2) g/dL Albumin 4.0 (3.5-5.0) g/dL - EKG Data -: EKG Interpreted by Mi EKG shows normal: axis (normal), intervals (Consistent with paced rhythm), QRS complexes (Consistent with paced rhythm), ST-T waves (Consistent with paced rhythm) Rate: bradycardia (rate 51 bpm) Interpretation: other (There is dual AV paced rhythm, rate 51 bpm) Disposition Clinical Impression: Fall, Laceration of scalp, Finger laceration Disposition: HOME SELF-CARE Condition: Good Instructions (If sedation given, give patient instructions): Laceration (ED), Fall Prevention for Older Adults (ED) Is patient prescribed a controlled substance at d/c from ED?: No Referrals: Beatriz Reyes MD [Primary Care Provider] - 1-2 days
[2021-02-14] MEDS ORDERED: DIPH,PERTUS(ACELL)TETVAC-LF 0.5 ML VIAL IM ONE (23:37)
[2021-02-14 23:54] LABS: Basophils # (A) 0.1 k/uL (0-0.2); Basophils % (A) 1 %; Eosinophils # (A) 0.4 k/uL (0-0.7); Eosinophils % (A) 5 %; HCT 43.5 % (34.0-46.0); HGB 13.9 gm/dL (11.4-16.0); Lymphocytes % (A) 27 %; MCH 31.9 pg (25.0-35.0); MCHC 31.9 g/dL (31.0-37.0); MCV 99.8 fL (80.0-100.0); Mean Platelet Volume 7.3; Monocytes # (A) 0.4 k/uL (0-1.0); Monocytes % (A) 5 %; Neutrophils # (A) 4.4 k/uL (1.3-7.7); Neutrophils % (A) 60 %; Platelet Count 248 k/uL (150-450); RBC 4.36 m/uL (3.80-5.40); RDW 12.7 % (11.5-15.5); WBC 7.4 k/uL (3.8-10.6)
--- NOTE | 2021-02-15 00:17 | CT ---
EXAMINATION TYPE: CT brain siennaine wo con DATE OF EXAM: 02/14/2021 COMPARISON: CT brain 01/07/2021 HISTORY: 1516.1 Headache. Neck pain fall. CT DLP: fall mGycm Automated exposure control for dose reduction was used. There is cerebral cortical atrophy. There is no mass effect nor midline shift. There is no sign of in tracranial hemorrhage. Calvarium is intact. Skull base is intact. Cervical vertebra have fairly normal alignment. There is degenerative disc space narrowing at C5-6 an d C6-7 with spurring of the endplates. There is mild multilevel hypertrophic cervical facet arthropat hy. I see no focal bone destruction. There is no compression fracture. IMPRESSION: Cerebral atrophy. No acute intracranial abnormality. Right parietal scalp hematoma noted with soft ti ssue air bubbles consistent with laceration. Spondylotic changes in the lower cervical spine. No fracture. Brain unchanged compared to old exam.
[2021-02-15 00:18] LABS: Calcium 9.3 mg/dL (8.4-10.2); Total Bilirubin 0.6 mg/dL (0.2-1.3); Total Protein 6.8 g/dL (6.3-8.2)
[2021-02-15 00:23] LABS: Potassium 4.6 mmol/L (3.5-5.1)
[2021-02-15] MEDS ORDERED: LIDOCAINE 1% INJ 10MG/ML (20 ML MDV) SQ ONE (00:51)
[2021-02-15 02:04] VITALS: BP 112/72; PULSE 65
== END 2021-02-15 02:04 | disposition home or self-care (01) ==
LOC: EC 22:59
DX: S01.01XA Laceration without foreign body of scalp, initial encounter (principal); S61.216A Laceration without foreign body of right little finger without damage to nail, initial encounter; E78.5 Hyperlipidemia, unspecified; I10 Essential (primary) hypertension; I25.10 Atherosclerotic heart disease of native coronary artery without angina pectoris; J44.9 Chronic obstructive pulmonary disease, unspecified; M19.90 Unspecified osteoarthritis, unspecified site; W18.30XA Fall on same level, unspecified, initial encounter; Z95.1 Presence of aortocoronary bypass graft; Z95.0 Presence of cardiac pacemaker; Z23 Encounter for immunization
CPT/HCPCS: 90471 ×2; 12004 ×2; 96372 ×2; 99284 ×2; 36415; 93005; 80053; 85025; 72125; 70450; 90715; J2001

== ENCOUNTER 2022-06-09 09:08 | Emergency (ER) | payer MEDICARE, BC ==
[2022-06-09 09:17] VITALS: RESP 18; TEMP 97.8
--- NOTE | 2022-06-09 09:52 | ED ---
Extremity Problem HPI - General Chief complaint: Extremity Problem,Nontraumatic Stated complaint: poss blood clot Time Seen by Provider: 06/09/22 09:09 Source: patient, EMS, RN notes reviewed Mode of arrival: EMS Limitations: no limitations - History of Present Illness Initial comments: 82-year-old female presents emergency Department chief complaint of left leg pain. Patient states started couple days ago. Patient states she is labwork and received a phone call stating that she had an elevated d-dimer. She has no history DVT or PE. She denies any chest pain shortness breath fevers or chills she states she has some left leg swelling mild discomfort. Patient states she does normally get some swelling of her left leg. She had vein grafting for her open heart surgery. She denies any abnormal bruising no abdominal pain no rectal bleeding denies any blood thinners. - Related Data Home Medications Medication Instructions Recorded Confirmed Aspirin 81 mg PO BID 09/23/15 06/09/22 Lovastatin [Mevacor] 30 mg PO HS 05/22/20 06/09/22 amLODIPine [Norvasc] 10 mg PO DAILY 05/22/20 06/09/22 lisinopriL 40 mg PO DAILY 05/22/20 06/09/22 Memantine [Namenda] 10 mg PO BID 02/14/21 06/09/22 Clopidogrel [Plavix] 75 mg PO DAILY 06/09/22 06/09/22 Previous Rx's Medication Instructions Recorded Cephalexin [Keflex] 500 mg PO Q6HR #28 cap 06/09/22 Allergies Allergy/AdvReac Type Severity Reaction Status Date / Time No Known Allergies Allergy Verified 06/09/22 10:43 Review of Systems ROS Statement: Those systems with pertinent positive or pertinent negative responses have been documented in the HPI. ROS Other: All systems not noted in ROS Statement are negative. Past Medical History Past Medical History: Coronary Artery Disease (CAD), COPD, Hyperlipidemia, Hypertension, Osteoarthritis (OA), Skin Disorder Additional Past Medical History / Comment(s): BLADDER WEAKNESS, ARTHRITIS-LOWER BACK, HANDS & KNEES History of Any Multi-Drug Resistant Organisms: None Reported Past Surgical History: Appendectomy, Bowel Resection, Coronary Bypass/CABG, Hear t Catheterization, Hysterectomy, Pacemaker Additional Past Surgical History / Comment(s): NICKOLAS CAROTID ENDARTERECTOMY, EXC. LEFT CATARACT WITH IMPLANT, CABG X4-05/2014, aortogram Past Anesthesia/Blood Transfusion Reactions: No Reported Reaction Type of Cardiac Device: Permanent Pacemaker Device Placement Date:: 09/30/15 [employer] Past Psychological History: No Psychological Hx Reported Smoking Status: Never smoker Past Alcohol Use History: Occasional Past Drug Use History: None Reported - Past Family History Father Family Medical History: Hypertension, Myocardial Infarction ([place]) Additional Family Medical History / Comment(s): @ AGE 101 Mother Family Medical History: No Reported History Additional Family Medical History / Comment(s): FROM STROKE General Exam Limitations: no limitations General appearance: alert, in no apparent distress Head exam: Present: atraumatic, normocephalic, normal inspection Eye exam: Present: normal appearance, PERRL, EOMI. Absent: scleral icterus, conjunctival injection, periorbital swelling ENT exam: Present: normal exam, normal oropharynx (No ecchymosis), mucous membranes moist Neck exam: Present: normal inspection. Absent: tenderness, meningismus, lymphadenopathy Respiratory exam: Present: normal lung sounds bilaterally. Absent: respiratory distress, wheezes, rales, rhonchi, stridor Cardiovascular Exam: Present: regular rate, normal rhythm, normal heart sounds. Absent: systolic murmur, diastolic murmur, rubs, gallop, clicks GI/Abdominal exam: Present: soft, normal bowel sounds. Absent: distended, tenderness, guarding, rebound, rigid Extremities exam: Present: other (Left leg swelling minimal erythema mild tenderness pedal pulses equal bilaterally patient has full range of motion there is old surgical scar noted) Neurological exam: Present: alert, oriented X3, CN II-XII intact Skin exam: Present: warm, dry, intact, normal color. Absent: rash Course Vital Signs 06/09/22 09:11 Temperature 97.8 F Pulse Rate 74 Respiratory 18 Rate Blood Pressure 197/80 O2 Sat by Pulse 96 Oximetry Medical Decision Making - Medical Decision Making 82-year-old female presented for left leg pain and swelling. Patient to elevated d-dimer WAS obtained is negative for acute DVT she has no chest pain or shortness of breath. Patient does have some erythematous skin changes concerning for possible cellulitis patient did not have any significant leukocytosis or fever. Patient discharged on oral antibiotics compression and elevation. Return parameters were discussed. Disposition Clinical Impression: Left leg swelling, Left leg cellulitis Disposition: HOME SELF-CARE Condition: Stable Instructions (If sedation given, give patient instructions): Leg Edema (ED) Additional Instructions: Please return to the Emergency Department if symptoms worsen or any other concerns. Prescriptions: Cephalexin [Keflex] 500 mg PO Q6HR #28 cap Is patient prescribed a controlled substance at d/c from ED?: No Referrals: Dorota Ayala MD [Primary Care Provider] - 1-2 days Time of Disposition: 11:17
--- NOTE | 2022-06-09 10:37 | US ---
EXAMINATION TYPE: US venous doppler duplex LE LT DATE OF EXAM: 06/09/2022 10:27 AM COMPARISON: NONE CLINICAL HISTORY: 82-year-old female pain, swelling no hx DVT. SIDE PERFORMED: Left TECHNIQUE: The lower extremity deep venous system is examined utilizing real time linear array sonog mario with graded compression, doppler sonography and color-flow sonography. FINDINGS: VESSELS IMAGED: Common Femoral Vein Deep Femoral Vein Greater Saphenous Vein * Femoral Vein Popliteal Vein Small Saphenous Vein * Proximal Calf Veins (* superficial vessels) Left Leg: Negative for DVT IMPRESSION: No evidence for DVT within the left lower extremity imaged from the groin to the upper calf.
[2022-06-09 11:39] VITALS: BP 160/73; PULSE 68
== END 2022-06-09 11:38 | disposition home or self-care (01) ==
LOC: EC 09:08 → SUPCPDRO 09:08 → EC 11:38
DX: L03.116 Cellulitis of left lower limb (principal); I25.10 Atherosclerotic heart disease of native coronary artery without angina pectoris; J44.9 Chronic obstructive pulmonary disease, unspecified; E78.5 Hyperlipidemia, unspecified; I10 Essential (primary) hypertension; M19.90 Unspecified osteoarthritis, unspecified site; Z79.82 Long term (current) use of aspirin; Z79.899 Other long term (current) drug therapy
CPT/HCPCS: 99284